=== PATIENT | female | born 1945 | race Caucasian/White ===

== ENCOUNTER 2017-01-02 19:34 | Emergency (ER) | payer OTHER ==
[~2017-01-02] VITALS: Ht 165.1 cm; Wt 50.3 kg
[~2017-01-02 19:34] MED LIST: ACET-1256 PO; ALPR-411 PO; CHOL100010 PO; CLR10 PO; LEVO25TA PO; MONT1TAB3 PO; OXYC1TAB3 PO
[2017-01-02 20:01] VITALS: TEMP 36.6; Ht 165.1 cm; Wt 50.3 kg
--- NOTE | 2017-01-02 22:00 | EMERGENCY ROOM VISIT NOTE ---
History Report prepared by Roel: Prashant Malone Under the Supervision of: Dr. Markel Purdy M.D. First contact with patient: 21:31 Chief Complaint: BACK PAIN Stated Complaint: BACK,SIDE,ABD PAIN History of Present Illness The patient is a 71 year old female who presents to the Emergency Room with complaints of constant left sided back pain for the past week. She currently rates her discomfort as a 6/10 in severity.The patient states that the pain radiates into her stomach. She additionally states that she has been having some nausea. The patient states that the pain goes down into her buttocks and her leg. The patient denies any chest pain, shortness of breath, numbness, weakness, or incontinence. She states that she has an increase in urine frequency, and it danielle when she urinates, however she states that there is no hematuria. She states that she does lift things while she is at home. The patient state that she has a history of kidney issues, and she states that the right one was enlarged. She states that she has a history of diverticulitis as well. Source of History: patient Onset: week ago Position: back (left ) Symptom Intensity: 6/10 Timing: constant Associated Symptoms: + nausea, + urinary symptoms, No SOB, No chest pain, No numbness, No weakness Review of Systems See HPI for pertinent positives & negatives. A total of 10 systems reviewed and were otherwise negative. Past Medical & Surgical Medical Problems: (1) Anxiety State Nos (2) Back pain (3) Back strain (4) Chest wall pain (5) Constipation (6) Hypothyroidism Nos (7) Kidney stone (8) Left flank pain (9) Low back pain (10) Muscular pain (11) Near syncope (12) Seasonal allergies (13) URI (upper respiratory infection) Surgical Problems: (1) Status post wrist surgery Old medical records were reviewed. Nurse's notes were reviewed and I agree with. Family History Diabetes mellitus FH: COPD (chronic obstructive pulmonary disease) FATHER FH: [place] (myocardial infarction) MOTHER FH: heart disease Seizures Social History Smoking Status: Current Every Day Smoker Alcohol Use: none Drug Use: none Marital Status: Housing Status: lives with family Occupation Status: unemployed Current/Historical Medications Scheduled Alprazolam (Xanax), 0.5 MG PO QAM Cholecalciferol (Vitamin D), 1,000 UNITS PO DAILY Levothyroxine Sodium (Synthroid), 25 MCG PO QAM Loratadine (Claritin), 10 MG PO DAILY Montelukast Sodium (Singulair), 10 MG PO DAILY Scheduled PRN Acetaminophen (Tylenol), 500 MG PO DIRECTED PRN for Pain Oxycodone Immediate Rel Tab (Roxicodone Ir), 1-2 TAB PO Q4H PRN for Severe Pain Allergies Coded Allergies: Aspirin (Verified Allergy, Intermediate, chest pain, 01/02/17) Cephalexin (Verified Allergy, Intermediate, Chest pain, 01/02/17) Latex (Verified Allergy, Intermediate, red skin, 01/02/17) Naproxen (Verified Allergy, Intermediate, chest pain, 01/02/17) Physical Exam Vital Signs Date Time Temp Pulse Resp B/P Pulse Ox O2 Delivery O2 Flow Rate FiO2 01/03/17 00:02 57 16 142/57 98 Room Air 01/02/17 21:59 35 16 146/86 97 Room Air 01/02/17 20:01 36.6 74 19 168/74 96 Room Air Physical Exam General: Non-ill appearing older female in no acute distress. HEENT: Normal cephalic atraumatic. Pupils are equal round and reactive to light. Sclera anicteric. Extraocular movements are intact. Oropharynx is pink with moist mucous membranes. No swelling of the mouth lips or tongue. Neck: Supple with a midline trachea. No meningeal signs or stiffness, no JVD or bruits. No Stridor. Chest: Clear to auscultation bilaterally. No wheezes or rhonchi. No increased work of breathing. Heart: regular rate and rhythm. Abdomen: Soft nontender, nondistended without rebound guarding or rigidity. Extremities: No cyanosis clubbing or edema. No calf tenderness or assymetry Spine/Back. Mild tenderness to palpation along the left flank and into the abdomen. No rash. Skin: Good turgor without rashes. Neurologic exam: Cranial nerves two through 12 are intact. Motor and sensation are intact and symmetrical throughout. Medical Decision & Procedures ER Provider Diagnostic Interpretation: Radiology results as stated below per my review and radiologist interpretation: ABDOMEN AND PELVIS CT WITHOUT CONTRAST CT DOSE: 326.03 mGy.cm HISTORY: Pain left flank pain TECHNIQUE: Multiaxial CT images of the abdomen and pelvis were performed without the use of intravenous and oral contrast according to the standard department stone protocol. COMPARISON STUDY: 12/12/2013. FINDINGS: lung bases are clear. General configuration of liver spleen and pancreas are unremarkable. Kidneys negative for hydronephrosis. The upper bowel pattern is nonobstructive. There evaluation of the pelvis is problematic. This is secondary to the lack of oral and intravenous contrast enhancement. There is suggestion of either a matted mass of the left lateral soft tissue pelvis versus multiple matted unopacified loops of bowel. This is estimated to measure 13 x 6 cm. There is a small amount of free fluid within the pelvic cul-de-sac. Bladder is midline with no contained calcifications. The appendix is normal. The osseous structures show moderate degenerative change. IMPRESSION: 1. Compromised exam due to the absence of intravenous and more significantly oral contrast. 2. Large soft tissue mass occupying the left lateral pelvis measuring 13 x 6 cm, versus the possibility of unopacified matted loops of bowel,, sigmoid, and potentially a component of the uterus. 3. This study must be repeated with intravenous and oral contrast as follow-up . Electronically signed by: Gallo Cavanaugh M.D. 01/02/2017 10:20 PM Dictated Date/Time: 01/02/2017 10:12 PM Laboratory Results 01/02/17 21:55 Red Blood Count 4.24, Mean Corpuscular Volume 91.7, Mean Corpuscular Hemoglobin 31.8, Mean Corpuscular Hemoglobin Concent 34.7, Mean Platelet Volume 9.1, Neutrophils (%) (Auto) 58.4, Lymphocytes (%) (Auto) 32.5, Monocytes (%) (Auto) 5.7, Eosinophils (%) (Auto) 2.7, Basophils (%) (Auto) 0.5, Neutrophils # (Auto) 5.57, Lymphocytes # (Auto) 3.10, Monocytes # (Auto) 0.54, Eosinophils # (Auto) 0.26, Basophils # (Auto) 0.05 01/02/17 21:55 Test 01/02/17 21:55 01/02/17 21:58 White Blood Count 9.54 K/uL (4.8-10.8) Red Blood Count 4.24 M/uL (4.2-5.4) Hemoglobin 13.5 g/dL (12.0-16.0) Hematocrit 38.9 % (37-47) Mean Corpuscular Volume 91.7 fL (80-100) Mean Corpuscular Hemoglobin 31.8 pg (25-34) Mean Corpuscular Hemoglobin Concent 34.7 g/dl (32-36) Platelet Count 252 K/uL (130-400) Mean Platelet Volume 9.1 fL (7.4-10.4) Neutrophils (%) (Auto) 58.4 % Lymphocytes (%) (Auto) 32.5 % Monocytes (%) (Auto) 5.7 % Eosinophils (%) (Auto) 2.7 % Basophils (%) (Auto) 0.5 % Neutrophils # (Auto) 5.57 K/uL (1.4-6.5) Lymphocytes # (Auto) 3.10 K/uL (1.2-3.4) Monocytes # (Auto) 0.54 K/uL (0.11-0.59) Eosinophils # (Auto) 0.26 K/uL (0-0.5) Basophils # (Auto) 0.05 K/uL (0-0.2) RDW Standard Deviation 42.2 fL (36.4-46.3) RDW Coefficient of Variation 12.5 % (11.5-14.5) Immature Granulocyte % (Auto) 0.2 % Immature Granulocyte # (Auto) 0.02 K/uL (0.00-0.02) Anion Gap 9.0 mmol/L (3-11) Est Creatinine Clear Calc Drug Dose 57.7 ml/min Estimated GFR () 98.3 Estimated GFR (Non- 84.9 BUN/Creatinine Ratio 14.9 (10-20) Calcium Level 9.7 mg/dl (8.5-10.1) Total Bilirubin 0.3 mg/dl (0.2-1) Direct Bilirubin < 0.1 mg/dl (0-0.2) Aspartate Amino Transf (AST/SGOT) 16 U/L (15-37) Alanine Aminotransferase (ALT/SGPT) 14 U/L (12-78) Alkaline Phosphatase 59 U/L (45-117) Total Protein 7.3 gm/dl (6.4-8.2) Albumin 4.1 gm/dl (3.4-5.0) Lipase 194 U/L (73-393) Urine Color YELLOW Urine Appearance CLEAR (CLEAR) Urine pH 7.0 (4.5-7.5) Urine Specific [place] 1.010 (1.000-1.030) Urine Protein NEG (NEG) Urine Glucose (UA) NEG (NEG) Urine Ketones NEG (NEG) Urine Occult Blood TRACE (NEG) Urine Nitrite NEG (NEG) Urine Bilirubin NEG (NEG) Urine Urobilinogen NEG (NEG) Urine Leukocyte Esterase NEG (NEG) Urine RBC 0-4 /hpf (0-4) Urine WBC 0 /hpf (0-5) Urine Epithelial Cells 0-5 /lpf (0-5) Urine Bacteria NEG (NEG) Lab results as reviewed by me. ED Course 2130: Past medical records reviewed. The patient was evaluated in room C2, and a complete history and physical examination were performed. 0016: I reassessed the patient, and she was resting comfortably. The radiologist felt that the CT results were inconclusive without contrast. Can't rule out masses. They recommend CT scan with contrast, and the patient wants to proceed with the imaging. Medical Decision Differentials include, but are not limited to; musculoskeletal, compression fracture, infection, UTI, diverticulitis, aneurysm, kidney stone This patient comes in as described above. She was placed in room C2. She's been having back pain going down her leg and into her abdomen. She has no numbness or weakness. She's had no fever or chills and no trauma. Looking at her chart ,she's had back pain before it did radiate to the abdomen which is a little bit different. IV access established and she was offered pain medication but declined. Her urinalysis does not suggest UTI with a culture pending. She's had no fever or white count to suggest infection. She has no acute electrolyte or metabolic abnormalities. She has nothing to suggest liver , gallbladder, or pancreas disease. Her CAT scan does not show any definite abnormalities with exception of a possible mass versus matted bowel loops in the pelvis. The Radiologist recommended repeating the CAT scan with IV and by mouth contrast. I discussed this with the patient and she desires to do this tonight. I ordered the scan. The patient will be signed out to Dr. Beck, who will follow-up with results. If they are normal I suspect she will be able to go home. She should return if increasing pain, worsening of symptoms, fever or chills, any new problems or concerns. She was happy with plan. Impression Primary Impression: Left-sided back pain Additional Impression: Left sided abdominal pain Scribe Attestation The scribe's documentation has been prepared under my direction and personally reviewed by me in its entirety. I confirm that the note above accurately reflects all work, treatment, procedures, and medical decision making performed by me. Departure Information Referrals Troy Eagle III, CRNP (PCP) Patient Instructions [facility] Problem Qualifiers
[2017-01-02] MEDS ORDERED: CHOL100010 PO (22:05)
[2017-01-02] MEDS ORDERED: OXYC1TAB3 PO (22:05)
[2017-01-02 22:07] LABS: BASO % 0.5 %; BASO ABS # 0.05 K/uL (0-0.2); COMPLETE YES; EOS % 2.7 %; HEMATOCRIT 38.9 % (37-47); IG% 0.2 %; LYMPH % 32.5 %; MEAN CELL VOLUME 91.7 fL (80-100); MEAN CORPUSCULAR HEMOGLOBIN 31.8 pg (25-34); MEAN CORPUSCULAR HGB CONC 34.7 g/dl (32-36); MEAN PLATELET VOLUME 9.1 fL (7.4-10.4); MONO % 5.7 %; NEUT % 58.4 %; PLATELET COUNT 252 K/uL (130-400); RED BLOOD COUNT 4.24 M/uL (4.2-5.4); WHITE BLOOD COUNT 9.54 K/uL (4.8-10.8)
--- NOTE | 2017-01-02 22:21 | DIAGNOSTIC IMAGING REPORT ---
ABDOMEN AND PELVIS CT WITHOUT CONTRAST CT DOSE: 326.03 mGy.cm HISTORY: Pain left flank pain TECHNIQUE: Multiaxial CT images of the abdomen and pelvis were performed without the use of intravenous and oral contrast according to the standard department stone protocol. COMPARISON STUDY: 12/12/2013. FINDINGS: lung bases are clear. General configuration of liver spleen and pancreas are unremarkable. Kidneys negative for hydronephrosis. The upper bowel pattern is nonobstructive. There evaluation of the pelvis is problematic. This is secondary to the lack of oral and intravenous contrast enhancement. There is suggestion of either a matted mass of the left lateral soft tissue pelvis versus multiple matted unopacified loops of bowel. This is estimated to measure 13 x 6 cm. There is a small amount of free fluid within the pelvic cul-de-sac. Bladder is midline with no contained calcifications. The appendix is normal. The osseous structures show moderate degenerative change. IMPRESSION: 1. Compromised exam due to the absence of intravenous and more significantly oral contrast. 2. Large soft tissue mass occupying the left lateral pelvis measuring 13 x 6 cm, versus the possibility of unopacified matted loops of bowel,, sigmoid, and potentially a component of the uterus. 3. This study must be repeated with intravenous and oral contrast as follow-up . Electronically signed by: Gallo Cavanaugh M.D. 01/02/2017 10:20 PM Dictated Date/Time: 01/02/2017 10:12 PM
[2017-01-02 22:25] LABS: ALT/SGPT 14 U/L (12-78); BLOOD UREA NITROGEN 11 mg/dl (7-18); BUN/CREATININE RATIO 14.9 (10-20); CALCIUM 9.7 mg/dl (8.5-10.1); CARBON DIOXIDE 27 mmol/L (21-32); CHLORIDE 106 mmol/L (98-107); CREATININE 0.72 mg/dl (0.60-1.20); GLUCOSE 103 mg/dl (70-99); POTASSIUM 3.5 mmol/L (3.5-5.1); SODIUM 142 mmol/L (136-145)
[2017-01-02 22:28] LABS: ALKALINE PHOSPHATASE 59 U/L (45-117); AST/SGOT 16 U/L (15-37)
[2017-01-02 22:55] LABS: MANUAL MICROSCOPIC REQUIRED? YES; URINE APPEARANCE CLEAR (CLEAR); URINE BILIRUBIN NEG (NEG); URINE COLOR YELLOW; URINE NITRITE NEG (NEG); UROBILINOGEN NEG (NEG)
[2017-01-02 23:13] LABS: REVIEW REQ? NO
[2017-01-02 23:23] LABS: URINE BACTERIA NEG (NEG); URINE RBC 0-4 /hpf (0-4); URINE WBC 0 /hpf (0-5)
[2017-01-03] MEDS ORDERED: OPTIRAY 320 IV PRN (00:30)
[2017-01-03 03:45] VITALS: BP 161/71; PULSE 62; O2SAT 97
--- NOTE | 2017-01-03 06:29 | EMERGENCY ROOM VISIT NOTE ---
ED Visit Note First contact with patient: 02:11 This case was signed out to me at change of shift awaiting results of CT scan of the abdomen/pelvis. The CT was interpreted by stat rad: Previously questioned pelvic mass corresponds to bowel loops and uterus on this oral and IV contrast examination. Appendix mostly feels with contrast its tip is mildly dilated but air-filled and there are no adjacent inflammatory changes to suggest appendicitis. No bowel obstruction no free air or free fluid subcentimeter likely renal cyst left kidney. 5 mm liver hypodensity, too small to act really characterize Right kidney demonstrates a compressed parents, which may be related to its more superior than typical location and results and compression by the liver, but there is no evidence of adjacent mass and liver is not enlarged. No hydronephrosis. Atherosclerotic calcifications of the aorta and its branches. Degenerative changes of the spine worst at L2 and L3. I reviewed these results with the patient and her family. She will discharged to home. I have encouraged her to follow-up with her PCP.
--- NOTE | 2017-01-03 07:50 | DIAGNOSTIC IMAGING REPORT ---
CT SCAN OF THE ABDOMEN AND PELVIS WITH IV CONTRAST CLINICAL HISTORY: Follow-up abnormal CT scan. Pelvic mass questioned on the unenhanced CT. COMPARISON STUDY: Abdominal CT dated 01/02/2017 and 12/12/2013. TECHNIQUE: Following the IV administration of 91 cc of Optiray 320, CT scan of the abdomen and pelvis is performed from the lung bases to the proximal femora. Images are reviewed in the axial, sagittal, and coronal planes. IV contrast was administered without complication. Automated dose control exposure was utilized. CT DOSE: 262.40 mGy.cm FINDINGS: Lung bases: There is mild right-sided cardiac enlargement. No pericardial effusion is seen. The lung bases are clear. Liver: The contrast-enhanced liver is normal in size, contour, and attenuation. Scattered subcentimeter hepatic hypodensities likely represent cysts but are too small for definitive characterization. There is no intrahepatic biliary ductal dilatation. The hepatic veins and portal veins are patent. Gallbladder: Unremarkable. Spleen: Normal in size and attenuation. Pancreas: Unremarkable. Adrenal glands: Unremarkable. Kidneys: The contrast enhanced kidneys demonstrate mild cortical atrophy and are without hydronephrosis. The kidneys enhance symmetrically. A subcentimeter cortical hypodensity in the left kidney likely absence a cyst but is too small for definitive characterization. Abdominal vasculature: The abdominal aorta is normal in course and caliber noting advanced atherosclerotic calcification. Bowel: The small bowel and colon are normal in course and caliber. The appendix is well-visualized and normal. Peritoneum: There is no intraperitoneal free air or abdominal ascites. Lymphadenopathy: None. Pelvic viscera: The bladder, uterus, and adnexa are normal as visualized. No pelvic mass is identified. Skeletal structures: The skeletal structures are osteopenic. There is moderate lumbosacral spondylosis and scoliosis. No lytic or blastic lesions are seen. IMPRESSION: 1. There are no acute infectious or inflammatory findings in the abdomen or pelvis. 2. There is no pelvic mass identified. The abnormality questioned on the unenhanced examination likely corresponds to decompressed small bowel loops and the uterus. 3. Additional findings as above. Electronically signed by: Robert Christiansen M.D. 01/03/2017 7:49 AM Dictated Date/Time: 01/03/2017 7:43 AM
== END 2017-01-03 04:12 | disposition home or self-care (01) ==
LOC: C.EDB 19:36 → C.EDC 01-03 04:12
DX: M54.9 Dorsalgia, unspecified (principal); R10.30 Lower abdominal pain, unspecified; E03.9 Hypothyroidism, unspecified; F41.9 Anxiety disorder, unspecified; F17.200 Nicotine dependence, unspecified, uncomplicated; Z87.442 Personal history of urinary calculi; Z86.19 Personal history of other infectious and parasitic diseases; Z79.899 Other long term (current) drug therapy; Z88.6 Allergy status to analgesic agent; Z88.8 Allergy status to other drugs, medicaments and biological substances; Z83.3 Family history of diabetes mellitus; Z82.49 Family history of ischemic heart disease and other diseases of the circulatory system; Z82.0 Family history of epilepsy and other diseases of the nervous system

== ENCOUNTER 2017-07-21 03:45 | Emergency (ER) | payer OTHER ==
[~2017-07-21] VITALS: Ht 165.1 cm; Wt 49.1 kg
[2017-07-21 03:58] VITALS: TEMP 36.6; Ht 165.1 cm; Wt 49.1 kg
[2017-07-21] MEDS ORDERED: OPTIRAY 320 IV PRN (04:45)
[2017-07-21 04:50] LABS: BASO % 0.5 %; BASO ABS # 0.05 K/uL (0-0.2); COMPLETE YES; HEMATOCRIT 39.2 % (37-47); IG% 0.3 %; LYMPH % 18.4 %; MEAN CELL VOLUME 92.2 fL (80-100); MEAN CORPUSCULAR HGB CONC 34.7 g/dl (32-36); MEAN PLATELET VOLUME 9.3 fL (7.4-10.4); MONO % 5.8 %; PLATELET COUNT 226 K/uL (130-400); RED BLOOD COUNT 4.25 M/uL (4.2-5.4); WHITE BLOOD COUNT 10.35 K/uL (4.8-10.8)
[2017-07-21 04:52] LABS: URINE APPEARANCE CLEAR (CLEAR); URINE BILIRUBIN NEG (NEG); URINE COLOR YELLOW; URINE NITRITE NEG (NEG); URINE PH 5.5 (4.5-7.5); URINE SPECIFIC GRAVITY 1.013 (1.000-1.030); UROBILINOGEN NEG (NEG); ZZUR CULT IF INDIC CLEAN CATCH NO
--- NOTE | 2017-07-21 04:52 | EMERGENCY ROOM VISIT NOTE ---
History First contact with patient: 04:20 Chief Complaint: ABDOMINAL PAIN Stated Complaint: STOMACH PAIN,NAUSEA Nursing Triage Summary: Pt reports abdominal pain on and off for about a couple of weeks. Pt reports this morning she woke up with lower abdominal pain that felt like gas pain but was unable to pass gas. History of Present Illness The patient is a 72 year old female who presents to the Emergency Room with complaints of lower abdominal pain which started approximately 3 hours ago. The patient states that she has had a crampy pain across her lower abdomen. She reports that she felt like she needed to have a bowel movement, but was not able to. She states that she had some mild intermittent pain throughout the day , but it worsened prior to arrival. She rates her overall discomfort a 6.5/10. She denies any associated urinary symptoms. She does report that she feels nauseous, but she feels this is due to postnasal drip. She reports a previous kidney surgery but denies any other abdominal surgeries. She denies any previous colonoscopy. Review of Systems A complete 10 point review of systems was reviewed with the patient with pertinent positives and negatives as per history of present illness. All else were negative. Past Medical/Surgical History Medical Problems: (1) Anxiety State Nos (2) Back pain (3) Back strain (4) Chest wall pain (5) Constipation (6) Hypothyroidism Nos (7) Kidney stone (8) Left flank pain (9) Low back pain (10) Muscular pain (11) Near syncope (12) Seasonal allergies (13) URI (upper respiratory infection) Surgical Problems: (1) Status post wrist surgery Family History Diabetes mellitus FH: COPD (chronic obstructive pulmonary disease) FATHER FH: [place] (myocardial infarction) MOTHER FH: heart disease Seizures Social History Smoking Status: Current Every Day Smoker Alcohol Use: none Drug Use: none Marital Status: Housing Status: lives with family Occupation Status: unemployed Current/Historical Medications Scheduled Alprazolam (Xanax), 0.5 MG PO QAM Cholecalciferol (Vitamin D), 1,000 UNITS PO DAILY Levothyroxine Sodium (Synthroid), 25 MCG PO QAM Loratadine (Claritin), 10 MG PO DAILY Montelukast Sodium (Singulair), 10 MG PO DAILY Scheduled PRN Acetaminophen (Tylenol), 500 MG PO DIRECTED PRN for Pain Allergies Coded Allergies: Aspirin (Verified Allergy, Intermediate, chest pain, 10/5/17) Cephalexin (Verified Allergy, Intermediate, Chest pain, 07/21/17) Latex (Verified Allergy, Intermediate, red skin, 07/21/17) Naproxen (Verified Allergy, Intermediate, chest pain, 07/21/17) Physical Exam Vital Signs Date Time Temp Pulse Resp B/P (MAP) Pulse Ox O2 Delivery O2 Flow Rate FiO2 07/21/17 08:20 65 18 138/55 98 07/21/17 07:23 63 18 132/49 96 Room Air 07/21/17 06:15 65 18 120/53 94 Room Air 07/21/17 03:58 36.6 82 20 144/76 96 Room Air Physical Exam VITALS: Vitals are noted on the nurse's note and reviewed by myself. Vital signs stable. GENERAL: This is a 72-year-old female, in no acute distress, nondiaphoretic, well-developed well-nourished. HEART: Regular rate and rhythm without murmurs gallops or rubs. LUNGS: Clear to auscultation bilaterally without wheezes, rales or rhonchi. ABDOMEN: Positive bowel sounds x 4. Soft, mild tenderness to palpation across the lower abdomen. No focal tenderness. No guarding or rebound tenderness. NEURO: Patient was alert and oriented to person place and time. 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 Lung bases: Minimal dependent changes likely atelectasis. Normal heart size. No pericardial or pleural effusion. Liver: Few small well-defined hypodensities indeterminate but likely hepatic cysts or hamartomas. Normal liver morphology. Patent vasculature. Biliary: Mild diffuse intrahepatic biliary ductal dilatation, which is probably central. The common duct is not significantly dilated. Normal gallbladder. Pancreas: Normal. Spleen: Normal. Adrenal glands: Normal. 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 The right ureter is also mildly dilated in the proximal segment, which takes an abnormally posterior medial course. The mid to distal right ureter is poorly visualized. No renal calculus is seen on the current or prior examination. Few small hypodensities in the right kidney, likely simple cysts. There is also new mild left pelvocaliectasis and dilatation of the proximal left ureter. The mid to distal left ureter is also poorly visualized. No current or prior left renal calculi. Bladder: Mildly distended. No bladder calculi. Pelvic organs: Normal. Bowel: Evaluation of the bowel is limited by lack of oral contrast. Allowing for this, mild stool burden throughout normal caliber colon. No bowel obstruction. Apparent gastric wall thickening at the fundus and at the antrum. No surrounding inflammatory change. Peritoneal cavity: Trace free fluid in the pelvis. Lymph nodes: No enlarged lymph nodes in the abdomen or pelvis. Vasculature: Prominent pelvic varices with dilation of the bilateral gonadal veins. Atherosclerosis. Dilated IVC and hepatic veins suggests a hypervolemic state. Abdominal wall: Normal. Musculoskeletal: Focal degenerative change at L2-3.. IMPRESSION: 1. Apparent gastric wall thickening at the fundus and antrum. This may be due to underdistention, although gastritis cannot be excluded. No perigastric inflammatory change. 2. Evaluation of the bowel is slightly degraded by the lack of oral contrast and a posterior intra-abdominal fat. 3. Mild central intrahepatic biliary ductal dilatation. No common duct dilatation. Correlate with LFTs. Ultrasound of the gallbladder to assess for gallstones could be obtained if clinically indicated. 4. 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 Laboratory Results 07/21/17 04:25 Red Blood Count 4.25, Mean Corpuscular Volume 92.2, Mean Corpuscular Hemoglobin 32.0, Mean Corpuscular Hemoglobin Concent 34.7, Mean Platelet Volume 9.3, Neutrophils (%) (Auto) 74.0, Lymphocytes (%) (Auto) 18.4, Monocytes (%) (Auto) 5.8, Eosinophils (%) (Auto) 1.0, Basophils (%) (Auto) 0.5, Neutrophils # (Auto) 7.67, Lymphocytes # (Auto) 1.90, Monocytes # (Auto) 0.60, Eosinophils # (Auto) 0.10, Basophils # (Auto) 0.05 07/21/17 04:25 Test 07/21/17 04:15 07/21/17 04:25 Urine Color YELLOW Urine Appearance CLEAR (CLEAR) Urine pH 5.5 (4.5-7.5) Urine Specific [place] 1.013 (1.000-1.030) Urine Protein NEG (NEG) Urine Glucose (UA) NEG (NEG) Urine Ketones NEG (NEG) Urine Occult Blood NEG (NEG) Urine Nitrite NEG (NEG) Urine Bilirubin NEG (NEG) Urine Urobilinogen NEG (NEG) Urine Leukocyte Esterase TRACE (NEG) Urine WBC (Auto) 5-10 /hpf (0-5) Urine RBC (Auto) 0-4 /hpf (0-4) Urine Hyaline Casts (Auto) 0 /lpf (0-5) Urine Epithelial Cells (Auto) 20-30 /lpf (0-5) Urine Bacteria (Auto) NEG (NEG) White Blood Count 10.35 K/uL (4.8-10.8) Red Blood Count 4.25 M/uL (4.2-5.4) Hemoglobin 13.6 g/dL (12.0-16.0) Hematocrit 39.2 % (37-47) Mean Corpuscular Volume 92.2 fL (80-100) Mean Corpuscular Hemoglobin 32.0 pg (25-34) Mean Corpuscular Hemoglobin Concent 34.7 g/dl (32-36) Platelet Count 226 K/uL (130-400) Mean Platelet Volume 9.3 fL (7.4-10.4) Neutrophils (%) (Auto) 74.0 % Lymphocytes (%) (Auto) 18.4 % Monocytes (%) (Auto) 5.8 % Eosinophils (%) (Auto) 1.0 % Basophils (%) (Auto) 0.5 % Neutrophils # (Auto) 7.67 K/uL (1.4-6.5) Lymphocytes # (Auto) 1.90 K/uL (1.2-3.4) Monocytes # (Auto) 0.60 K/uL (0.11-0.59) Eosinophils # (Auto) 0.10 K/uL (0-0.5) Basophils # (Auto) 0.05 K/uL (0-0.2) RDW Standard Deviation 42.3 fL (36.4-46.3) RDW Coefficient of Variation 12.5 % (11.5-14.5) Immature Granulocyte % (Auto) 0.3 % Immature Granulocyte # (Auto) 0.03 K/uL (0.00-0.02) Anion Gap 9.0 mmol/L (3-11) Est Creatinine Clear Calc Drug Dose 54.0 ml/min Estimated GFR () 94.5 Estimated GFR (Non- 81.5 BUN/Creatinine Ratio 15.9 (10-20) Calcium Level 9.7 mg/dl (8.5-10.1) Total Bilirubin 0.3 mg/dl (0.2-1) Aspartate Amino Transf (AST/SGOT) 15 U/L (15-37) Alanine Aminotransferase (ALT/SGPT) 15 U/L (12-78) Alkaline Phosphatase 60 U/L (45-117) Total Protein 6.9 gm/dl (6.4-8.2) Albumin 3.8 gm/dl (3.4-5.0) Globulin 3.1 gm/dl (2.5-4.0) Albumin/Globulin Ratio 1.2 (0.9-2) Lipase 240 U/L (73-393) ED Course The patient was evaluated as above. Labs were drawn and IV access was obtained. CT of the abdomen/pelvis was performed and read by radiology as above. Patient was reevaluated and stated that she was having no pain at this time. Discharge instructions were reviewed with the patient. The patient verbalized understanding of my assessment and treatment plan and was discharged home in good condition. Medical Decision Differential diagnosis includes gastroenteritis, colitis, diverticulitis, appendicitis, bowel obstruction, ileus, urinary tract infection, among others. The patient is a 72-year-old female who presents today complaining of lower abdominal pain. Labs revealed no leukocytosis, anemia or concerning electrolyte abnormalities. LFTs are not elevated. Urinalysis is not suggestive of infection. CT was performed and did not show any acute infectious or inflammatory findings. 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 There was evidence of gastritis, and the patient does admit to GERD and is treated for this. There was questionable intrahepatic biliary duct dilatation, however without elevation of LFTs or right upper quadrant pain I do not feel this is likely contributory to the patient's discomfort. Patient's symptoms are likely secondary to gastritis. She was advised to keep a clear liquid diet for the next 24 hours then advance as tolerated. She will call her primary care provider to schedule follow-up. The patient was independently evaluated by Dr. Beck, ED attending physician, who agreed with my assessment and treatment plan. Based on the patient's presentation and work up, I feel the patient is stable for outpatient treatment. The patient was educated to return to the emergency department for any worsening of their current condition or new/concerning symptoms. She will follow up with her PCP. Blood pressure screening: Patient was found to have normal blood pressure on screening and does not require follow-up. Medication reconciliation: I attest that I have personally reviewed the patient 's current medication list. Impression Primary Impression: Lower abdominal pain Departure Information Dispostion Home / Self-Care Condition GOOD Referrals Fawad Betancourt PA-C (PCP) Patient Instructions My [facility] Additional Instructions You have been treated in the Emergency Department for your Abdominal Pain. Laboratory results and imaging studies have ruled out any emergent causes for your abdominal pain which would warrant admission or surgery. Clear liquid diet over the next 24 hours, then advance as tolerated. Drink plenty of water and stay well hydrated. As with any trip to the Emergency Department, you should follow-up with your Primary Care Provider from today's visit. Call them today to schedule a follow- up within 2 days. Return to the emergency department if your symptoms persist despite treatment plan outlined above or if the following symptoms occur: increased fevers, chills , worsening nausea/vomiting, blood in your stool or urine.
[2017-07-21 05:05] LABS: MANUAL MICROSCOPIC REQUIRED? NO; REVIEW REQ? YES
[2017-07-21 05:07] LABS: BUN/CREATININE RATIO 15.9 (10-20); CALCIUM 9.7 mg/dl (8.5-10.1); CREATININE 0.74 mg/dl (0.60-1.20); POTASSIUM 3.8 mmol/L (3.5-5.1)
[2017-07-21 05:10] LABS: ALB/GLOB RATIO 1.2 (0.9-2)
[2017-07-21 05:10] LABS: URINE EPITHELIAL CELL AUTO 20-30 /lpf (0-5)
--- NOTE | 2017-07-21 07:58 | DIAGNOSTIC IMAGING REPORT ---
ABD/PELVIS IV CONTRAST ONLY CLINICAL HISTORY: 72 years-old Female presenting with lower abd pain. TECHNIQUE: Multidetector CT of the abdomen and pelvis was performed after the administration of intravenous contrast. IV contrast: 92 mL of Optiray 320. A dose lowering technique was used consistent with the principles of ALARA (as low as reasonably achievable). COMPARISON: 01/03/2017. CT DOSE (mGy.cm): The estimated cumulative dose is 251.96 mGy.cm. 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 Lung bases: Minimal dependent changes likely atelectasis. Normal heart size. No pericardial or pleural effusion. Liver: Few small well-defined hypodensities indeterminate but likely hepatic cysts or hamartomas. Normal liver morphology. Patent vasculature. Biliary: Mild diffuse intrahepatic biliary ductal dilatation, which is probably central. The common duct is not significantly dilated. Normal gallbladder. Pancreas: Normal. Spleen: Normal. Adrenal glands: Normal. 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 The right ureter is also mildly dilated in the proximal segment, which takes an abnormally posterior medial course. The mid to distal right ureter is poorly visualized. No renal calculus is seen on the current or prior examination. Few small hypodensities in the right kidney, likely simple cysts. There is also new mild left pelvocaliectasis and dilatation of the proximal left ureter. The mid to distal left ureter is also poorly visualized. No current or prior left renal calculi. Bladder: Mildly distended. No bladder calculi. Pelvic organs: Normal. Bowel: Evaluation of the bowel is limited by lack of oral contrast. Allowing for this, mild stool burden throughout normal caliber colon. No bowel obstruction. Apparent gastric wall thickening at the fundus and at the antrum. No surrounding inflammatory change. Peritoneal cavity: Trace free fluid in the pelvis. Lymph nodes: No enlarged lymph nodes in the abdomen or pelvis. Vasculature: Prominent pelvic varices with dilation of the bilateral gonadal veins. Atherosclerosis. Dilated IVC and hepatic veins suggests a hypervolemic state. Abdominal wall: Normal. Musculoskeletal: Focal degenerative change at L2-3.. IMPRESSION: 1. Apparent gastric wall thickening at the fundus and antrum. This may be due to underdistention, although gastritis cannot be excluded. No perigastric inflammatory change. 2. Evaluation of the bowel is slightly degraded by the lack of oral contrast and a posterior intra-abdominal fat. 3. Mild central intrahepatic biliary ductal dilatation. No common duct dilatation. Correlate with LFTs. Ultrasound of the gallbladder to assess for gallstones could be obtained if clinically indicated. 4. 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 Electronically signed by: Robb Rahman M.D. 07/21/2017 7:56 AM Dictated Date/Time: 07/21/2017 7:27 AM
--- NOTE | 2017-07-21 08:02 | EMERGENCY ROOM VISIT NOTE ---
ED Visit Note First contact with patient: 04:20 I saw this patient in conjunction with Mi Kraft PA-C. I agree with her decision making and treatment plan.
[2017-07-21 08:20] VITALS: BP 138/55; PULSE 65; O2SAT 98
== END 2017-07-21 08:21 | disposition home or self-care (01) ==
LOC: C.EDB 03:46 → C.EDA 08:21
DX: R10.30 Lower abdominal pain, unspecified (principal); F41.9 Anxiety disorder, unspecified; E03.9 Hypothyroidism, unspecified; Z87.442 Personal history of urinary calculi; Z83.3 Family history of diabetes mellitus; Z82.49 Family history of ischemic heart disease and other diseases of the circulatory system; F17.210 Nicotine dependence, cigarettes, uncomplicated; Z79.899 Other long term (current) drug therapy

== ENCOUNTER 2024-11-29 10:33 | Inpatient (IN) ==
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
--- NOTE | 2024-11-29 11:46 | CT Scan Report ---
CT head/brain wo con CLINICAL HISTORY: 79 years-old Female with confusion. Acutely altered mental status TECHNIQUE: Multiple axial CT images of the head were obtained without contrast. A dose lowering tech nique was utilized adhering to the principles of ALARA. CT DOSE: 625.8 mGy.cm COMPARISON: 09/19/2016 FINDINGS: No acute intracranial hemorrhage, midline shift, intracranial mass, hydrocephalus, territorial ischem ia or abnormal extra-axial collection. Progressively worse and involutional changes with chronic micr ovascular ischemic disease and mild ex vacuo ventriculomegaly. Encephalomalacia within the left tempo roparietal lobe suggestive of a chronic infarct. Calcification of the pontine brainstem again noted. The calvarium is intact. The paranasal sinuses, mastoid air cells, and middle ear cavities are clear . IMPRESSION: No acute intracranial abnormality. ACT 112: Negative or not required by law. The above report was generated using voice recognition software. It may contain grammatical, syntax o r spelling errors. Electronically signed by: Jeremy Garay M.D. 11/29/2024 11:45 AM
[2024-11-29 12:01] LABS: Basophils # (auto) 0.06 K/uL (0.00-0.20); Basophils % (auto) 0.8 %; Eosinophils # (auto) 0.09 K/uL (0.00-0.50); Eosinophils % (auto) 1.1 %; Hematocrit (blood only) 38.1 % (37.0-47.0); Hemoglobin 13.1 g/dl (12.0-16.0); Immature Granulocytes # (auto) 0.01 K/uL (0.01-0.20); Immature Granulocytes % (auto) 0.1 %; Lymphocytes % (auto) 17.6 %; Mean Corpuscular Hemoglobin 31.4 pg (25.0-34.0); Mean Corpuscular Hgb Conc 34.4 g/dL (32.0-36.0); Mean Corpuscular Volume 91.4 fL (80.0-100.0); Mean Platelet Volume 9.3 fL (9.4-12.4); Monocytes # (auto) 0.78 K/uL (0.11-0.59); Monocytes % (auto) 9.8 %; Neutrophils # (auto) 5.63 K/uL (1.40-6.50); Neutrophils % (auto) 70.6 %; Platelet Count 264 K/uL (130-400); RDW Coefficient of Variation 12.6 % (11.5-14.5); Red Blood Count 4.17 M/uL (4.20-5.40); White Blood Count 7.97 K/ul (4.8-10.8)
[2024-11-29 12:17] LABS: Acetaminophen < 3 ug/ml (10-30); Salicylate < 3.0 mg/dl (3.0-30)
[2024-11-29 12:20] LABS: Alanine Aminotransferase 16 U/L (7-52); Albumin Globulin Ratio 1.7 (0.9-2); Albumin Level 4.5 gm/dl (3.4-5.0); Alkaline Phosphatase 48 U/L (34-104); Anion Gap 5 (3-11); Aspartate Aminotransferase 25 U/L (13-39); BUN Creatinine Ratio 19.8 (10-20); Bilirubin,Total 0.5 mg/dl (0.2-1.0); Blood Urea Nitrogen 17 mg/dl (6-23); Carbon Dioxide 29 mmol/L (21-32); Chloride 104 mmol/L (98-107); Globulin 2.7 gm/dl (2.5-4.0); Glucose 101 mg/dl (70-99(Fasting)); Magnesium 2.1 mg/dl (1.7-2.4); Potassium 4.1 mmol/L (3.5-5.1); Sodium 138 mmol/L (136-145); Total Protein 7.2 gm/dl (6.0-8.3)
[2024-11-29 12:44] LABS: Appearance Urine Clear (Clear); Bilirubin Urine Negative (Negative); Blood Urine Negative (Negative); Color Urine Yellow; Glucose Urine UA Negative (Negative); Ketones Urine Negative (Negative); Leukocyte Esterase Urine Negative (Negative); Nitrite Urine Negative (Negative); Protein Urine Negative (Negative); Specific Gravity Urine 1.004 (1.000-1.030); Urobilinogen Urine Negative (Negative)
[2024-11-29 13:20] LABS: Amphetamines+Metham, Urine Neg (Neg); Barbiturates, Urine Neg (Neg); Benzodiazepine, Urine Pos (Neg); Cocaine, Urine Neg (Neg); Fentanyl, Urine Neg (Neg); MDMA (Ecstacy), Urine Neg (Neg); Marijuana, Urine Neg (Neg); Methadone, Urine Neg (Neg); Opiate, Urine Neg (Neg); Phencyclidine, Urine Neg (Neg)
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
[2024-11-29] MEDS ORDERED: ACETAMINOPHEN 325 MG TAB PO PRN (15:24)
[2024-11-29] MEDS ORDERED: OLANZapine 10 MG/2.1 ML SDV IM PRN (15:24)
[2024-11-29] MEDS: Patient's HEIGHT &/or WEIGHT Needed STA (15:42)
[2024-11-29] MEDS ORDERED: PNEUMOCOCCAL VACCINE (PCV20) 20-VAL CONJ-DIP CRM/PF 0.5 ML SYR IM ONE (15:42)
[2024-11-29] MEDS: ENOXAPARIN INJ 30 MG/0.3 ML SYR SQ SCH (17:20)
[2024-11-29] MEDS: DONEPEZIL HCL 5 MG TAB PO SCH (19:59)
[2024-11-29] MEDS: ALPRAZolam 0.5 MG TABLET PO PRN (19:59)
[2024-11-30] MEDS: LEVOTHYROXINE SODIUM 25 MCG TABLET PO SCH (05:46)
[2024-11-30] MEDS: ATORVASTATIN 10 MG TAB PO SCH (09:03)
[2024-11-30] MEDS: SERTRALINE HCL 50 MG TABLET PO SCH (09:03)
--- NOTE | 2024-11-30 17:18 | Hospitalist Progress Note ---
Date of Service November 30, 2024 Assessment & Plan (1) Memory impairment: (2) Advanced dementia: Plan Alyssia is a 79-year-old female with PMH of dementia, recurrent UTIs, and memory impairment. She presented on 11/29 for an acute worsening of her known dementia. Patient lives with her daughter (Liam). Both children report that she has had significant decline in her cognition since around [place] time 2023. 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 #Advanced dementia One-to-one precautions for now No infectious symptoms appreciated on exam or lab findings Continue sertraline 25 mg daily, donepezil 5 mg daily, Xanax 0.5 mg BID PRN anxiety Zyprexa 5mg IM chain sales consultant as needed for acute agitation Consider low dose Seroquel at night -- will monitor behaviors overnight Chronic stable issues: #Hypothyroidism-levothyroxine #HLD-atorvastatin DVT PPx: Lovenox 40 mg SQ q24h Dispo: Continue inpatient stay while awaiting long-term placement. Case management following; referrals pending. Updated daughter Kristine via phone call Admission and Anticipated Discharge Date Admission Date: November 29, 2024 Supervising Physician Co-Signing Physician Notes Attending Attestation - Chart reviewed, care plan d/w PA Shiela Gama. I agree w/ the herbert components of her documentation. Pt with advanced dementia with behavioral disturbance. Dementia has progressed considerably last few months. 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 Should be on low-dose asa for secondary stroke prevention. Consider B12 and B1 levels. Eric Guajardo MD Subjective Patient seen and evaluated in bedside chair. She was sitting calmly, just finished lunch. She denies any acute complaints or concerns at this time. We discussed her stuffed animal dogs throughout the room. RN reported she was more agitated this morning when family was present, but has remained pretty calm with the one-to-one aide in the room. RN also reports she is independent in the room. Physical Exam Physical Exam: General: No acute distress, nondiaphoretic, frail elderly female. Cardiac: Regular rate in 60s. Well perfused. Pulm: Normal respiratory effort. 98% on room air. Neuro: A&O x2 (person, place) - baseline secondary to dementia. No focal neurological deficits. Results & Data Results & Data Vital Signs (Past 12 Hours) Vital Signs Temp Pulse Resp BP Pulse Ox O2 Del Method 11/30/24 15:20 98.1 F 62 17 169/69 H 98 Room Air PG Care Time/CCT Total # of Minutes Spent Total Time Spent with Patient: Total time spent is greater than 50% in coordination of care (as documented) at patient's floor/unit and/or counseling patient: Coding Level of Care Code 77644 SUB INP/OBS CARE 2/35MIN Diagnoses Memory impairment R41.3 Advanced dementia F03.C0
[2024-11-30] MEDS: MELATONIN 3 MG TAB PO PRN (20:29)
--- NOTE | 2024-12-01 11:43 | Hospitalist Progress Note ---
Date of Service December 01, 2024 Assessment & Plan (1) Memory impairment: (2) Advanced dementia: Plan Alyssia is a 79-year-old female with PMH of dementia, recurrent UTIs, and memory impairment. She presented on 11/29 for an acute worsening of her known dementia. Patient lives with her daughter (Liam). Both children report that she has had significant decline in her cognition since around Ann time 2023. Family desires to have the patient admitted for manager long term care placement. #Advanced dementia No infectious symptoms appreciated on exam or lab findings Continue sertraline 25 mg daily, donepezil 5 mg daily, Xanax 0.5 mg increased to TID PRN anxiety Will try Seroquel 25 mg HS -- received 1 time dose in afternoon due to agitation Start aspirin 81 mg daily for primary prevention given encephalomalacia within the left temporoparietal lobe suggestive of chronic infarct noted on Head CT Zyprexa 5mg IM color control operator as needed for acute agitation Chronic stable issues: #Hypothyroidism-levothyroxine #HLD-atorvastatin DVT PPx: Lovenox 40 mg SQ q24h Dispo: Continue inpatient stay while awaiting long-term placement. Case management following; referrals pending. Updated daughter Kristine at bedside Started daily aspirin, Seroquel HS and ordered 1 time dose Seroquel for agitation Admission and Anticipated Discharge Date Admission Date: November 29, 2024 Supervising Physician Co-Signing Physician Notes Attending Attestation - Chart reviewed, care plan d/w KRISTI Gama. I agree w/ the herbert components of her documentation. Pt with advanced dementia with behavioral disturbance. Dementia has progressed considerably last few months. Agree with seroquel - patient with yelling and profanity along with agitation. 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 Should be on low-dose asa for secondary stroke prevention. Aspirin 81mg daily ordered. Check B12 and B1 levels to r/o reversible nutritional deficiencies that can cause memory disturbance. Eric Gaujardo MD Subjective Patient seen and evaluated at bedside with her daughter, Kristine, present. She was agitated and yelling this morning per RN and daughter. She has calmed down mostly since then, currently resting comfortably in bedside chair. RN reports patient took her morning medications without difficulty and ate all of her breakfast. She reports that she would like to go home. Denies any acute complaints, concerns, or needs. Discussed medications with daughter and agreeable to trying low dose Seroquel HS and baby aspirin daily. Daughter reports they are going to visit [facility] today for possible placement. Returned to bedside in afternoon after reports of patient becoming agitated. She was yelling profanities in her room. Upon entry, she calmed down and was redirectable. We walked a lap in the hallways and she remained calm and appropriate. She later became agitated again and started yelling profanities further; attempted to redirect patient with taking a walk, doing other activities, getting her a snack/drink but she refused. 1 time dose of Seroquel was ordered at that time. Physical Exam Physical Exam: General: No acute distress, nondiaphoretic, frail elderly female. Intermittently agitated. Cardiac: Regular rate in 80s. Well perfused. Pulm: Normal respiratory effort. 97% on room air. Neuro: A&O x2 (person, place) - baseline secondary to dementia. No focal neurological deficits. Results & Data Results & Data Vital Signs (Past 12 Hours) Vital Signs Temp Pulse Resp BP Pulse Ox O2 Del Method 12/01/24 07:13 98.1 F 82 18 155/72 H 97 Room Air PG Care Time/CCT Total # of Minutes Spent Total Time Spent with Patient: Total time spent is greater than 50% in coordination of care (as documented) at patient's floor/unit and/or counseling patient: Coding Level of Care Code 28821 SUB INP/OBS CARE 3/50MIN Diagnoses Memory impairment R41.3 Advanced dementia F03.C0
[2024-12-01] MEDS: ALPRAZolam 0.5 MG TABLET ONE (14:40)
[2024-12-01] MEDS: QUEtiapine FUMARATE 25 MG TABLET PO ONE (16:53)
[2024-12-01] MEDS: ALPRAZolam 0.5 MG TABLET PO PRN (20:12)
[2024-12-01] MEDS: QUEtiapine FUMARATE 25 MG TABLET PO SCH (20:13)
[2024-12-02] MEDS: ASPIRIN 81 MG ECTAB PO SCH (07:00)
--- NOTE | 2024-12-02 10:23 | Hospitalist Progress Note ---
Date of Service December 02, 2024 Assessment & Plan (1) Memory impairment: (2) Advanced dementia: Plan Alyssia is a 79-year-old female with PMH of dementia, recurrent UTIs, and memory impairment. She presented on 11/29 for an acute worsening of her known dementia. Patient lives with her daughter (Liam). Both children report that she has had significant decline in her cognition since around Ann time 2023. No infectious symptoms appreciated on exam or lab findings. Family desires to have the patient admitted for assisted placement. Started aspirin 81 mg daily for primary prevention given encephalomalacia within the left temporoparietal lobe suggestive of chronic infarct noted on Head CT. Started Seroquel HS to help with agitation overnight. #Advanced dementia Continue sertraline 25 mg daily, donepezil 5 mg daily, Xanax 0.5 mg TID PRN anxiety Seroquel increased to 50 mg HS Continue aspirin 81 mg daily Zyprexa 5mg IM alberene stone setter as needed for acute agitation Vit B12 WNL, Vit B1 level pending Chronic stable issues: #Hypothyroidism-levothyroxine #HLD-atorvastatin DVT PPx: Lovenox 40 mg SQ q24h Dispo: Continue inpatient stay while awaiting long-term placement. Case management following; referrals pending. Plan is for patient to temporarily go to locked dementia unit while family coordinates home care. Updated daughter Andres at bedside Discussed discharging planning with case management Admission and Anticipated Discharge Date Admission Date: November 29, 2024 Supervising Physician Co-Signing Physician Notes Attending Attestation - Chart reviewed, care plan d/w KRISTI Gama. I agree w/ the herbert components of her documentation. Pt with advanced dementia with behavioral disturbance. Dementia has progressed considerably last few months. Agree with dose titration of seroquel to 50mg HS as she sundowned all night last pm. 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 Added low-dose asa for secondary stroke prevention. B12 level "normal" per the lab range but given it is <300 would replace for 4-6 months. B1 level pending. Dispo planning. Eric Guajardo MD Subjective Patient seen and evaluated in bedside chair with her daughter Andres present. Patient was agitated and yelling profanities in her room/the hallway earlier this morning. She remains redirectable and does calm down with staff's encou ragement. RN reports she took her morning meds without difficulty. Patient states she did not sleep much last night. She denies any acute complaints or concerns at this time. Daughter Andres asked for resources from case management regarding possibly bringing the patient back home with more supportive care. Informed daughter I will ask case management to come speak with her, but I do have concern regarding patient's/family's safety at home without more support (09/05 supervision, locks on all outside doors, etc.). Physical Exam Physical Exam: General: No acute distress, nondiaphoretic, frail elderly female. Intermittently agitated but redirectable. Walks her room/halls without difficulty. Cardiac: Regular rate in 70s. Well perfused. Pulm: Normal respiratory effort. 96% on room air. Neuro: A&O x2 (person, place) - baseline secondary to dementia. No focal neurological deficits. Results & Data Results & Data Vital Signs (Past 12 Hours) Vital Signs Pulse Resp BP Pulse Ox O2 Del Method 12/02/24 07:40 73 18 169/73 H 96 Room Air Laboratory Results Reviewed Vit B12 PG Care Time/CCT Total # of Minutes Spent Total Time Spent with Patient: Total time spent is greater than 50% in coordination of care (as documented) at patient's floor/unit and/or counseling patient: Coding Level of Care Code 87697 SUB INP/OBS CARE 2/35MIN Diagnoses Memory impairment R41.3 Advanced dementia F03.C0
[2024-12-02] MEDS: QUEtiapine FUMARATE 25 MG TABLET PO SCH (20:24)
--- NOTE | 2024-12-03 14:19 | Hospitalist Progress Note ---
Date of Service December 03, 2024 Assessment & Plan (1) Memory impairment: (2) Advanced dementia: Plan Alyssia is a 79-year-old female with PMH of dementia, recurrent UTIs, and memory impairment. She presented on 11/29 for an acute worsening of her known dementia. Patient lives with her daughter (Liam). Both children report that she has had significant decline in her cognition since around Ann time 2023. No infectious symptoms appreciated on exam or lab findings. Family desires to have the patient admitted for [facility] placement. Started aspirin 81 mg daily for primary prevention given encephalomalacia within the left temporoparietal lobe suggestive of chronic infarct noted on Head CT. Started Seroquel HS to help with agitation overnight. #Advanced dementia Continue sertraline 25 mg daily, donepezil 5 mg daily, Xanax 0.5 mg TID PRN anxiety Continue Seroquel to 50 mg HS Continue aspirin 81 mg daily Zyprexa 5mg IM lamination spinner as needed for acute agitation Vit B12 WNL, Vit B1 level pending Chronic stable issues: #Hypothyroidism-levothyroxine #HLD-atorvastatin DVT PPx: Lovenox 40 mg SQ q24h Dispo: Continue inpatient stay while awaiting long-term placement. Case management following; referrals pending. Plan is for patient to temporarily go to locked dementia unit while family coordinates home care. Updated daughter Andres at bedside Admission and Anticipated Discharge Date Admission Date: November 29, 2024 Supervising Physician Co-Signing Physician Notes Attending Attestation - Chart reviewed, care plan d/w KRISTI Gama. I agree w/ the herbert components of her documentation. Pt with advanced dementia with behavioral disturbance. Dementia has progressed considerably last few months. Cont seroquel 50mg HS. 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 Added low-dose asa for secondary stroke prevention. B12 level "normal" per the lab range but given it is <300 -- consider replacement for 4-6 months. B1 level pending. Dispo planning. Eric Guajardo MD Subjective Patient seen and evaluated at bedside this morning. She was quite agitated at this time, yelling profanities in the room. She did calm down with redirection. She continued to repeat that she wants to go home. She denies any acute complaints or concerns at this time. Rerounded on patient in afternoon. She is calmly sitting in her room at this time with her daughter, Andres, present. No complaints or concerns. Andres confirms the plan is for discharge to locked dementia unit while family coordinates care for home. Physical Exam Physical Exam: General: No acute distress, nondiaphoretic, frail elderly female. Intermittently agitated but redirectable. Walks her room/halls without difficulty. Cardiac: Regular rate in 70s. Well perfused. Pulm: Normal respiratory effort. 96% on room air. Neuro: A&O x2 (person, place) - baseline secondary to dementia. No focal neurological deficits. Results & Data Results & Data Vital Signs (Past 12 Hours) Vital Signs Temp Pulse Resp BP Pulse Ox O2 Del Method 12/03/24 07:29 97.7 F 55 L 16 174/66 H 98 Room Air PG Care Time/CCT Total # of Minutes Spent Total Time Spent with Patient: Total time spent is greater than 50% in coordination of care (as documented) at patient's floor/unit and/or counseling patient: Coding Level of Care Code 30263 SUB INP/OBS CARE 2/35MIN Diagnoses Memory impairment R41.3 Advanced dementia F03.C0
[2024-12-04 11:37] LABS: 7-Aminoclonaz, Confirm NEGATIVE ng/mL (<25); Hydro-Alp Ur, GC/MS 61 ng/mL (<25); Hydroxyethylflurazepam, Conf NEGATIVE ng/mL (<50); Hydroxymidazolam Ur, GC/MS NEGATIVE ng/mL (<50); Hydroxytriazolam NEGATIVE ng/mL (<50); Lorazepam, Ur GC/MS NEGATIVE ng/mL (<50); Nordiazepam, Confirm NEGATIVE ng/mL (<50); Oxazepam Ur, GC/MS NEGATIVE ng/mL (<50); Temazepam, Confirm NEGATIVE ng/mL (<50)
--- NOTE | 2024-12-04 22:11 | Hospitalist Progress Note ---
Date of Service December 04, 2024 Assessment & Plan (1) Memory impairment: (2) Advanced dementia: Plan Alyssia is a 79-year-old female with PMH of dementia, recurrent UTIs, and memory impairment. She presented on 11/29 for an acute worsening of her known dementia. Patient lives with her daughter (Liam). Both children report that she has had significant decline in her cognition since around Ann time 2023. No infectious symptoms appreciated on exam or lab findings. Family desires to have the patient admitted for senior care placement. Started aspirin 81 mg daily for primary prevention given encephalomalacia within the left temporoparietal lobe suggestive of chronic infarct noted on Head CT. Started Seroquel HS to help with agitation overnight. #Advanced dementia Continue sertraline 25 mg daily, donepezil 5 mg daily, Xanax 0.5 mg TID PRN anxiety Continue Seroquel to 50 mg HS Continue aspirin 81 mg daily Zyprexa 5mg IM electronic warfare operator as needed for acute agitation Vit B12 WNL, Vit B1 level still pending Appears more controlled now with zyprexa. Chronic stable issues: #Hypothyroidism-levothyroxine #HLD-atorvastatin DVT PPx: Lovenox 40 mg SQ q24h Dispo: Continue inpatient stay while awaiting long-term placement. Case management following; referrals pending. Plan is for patient to temporarily go to locked dementia unit while family coordinates home care. Updated daughter Phyllis at bedside Chart review. Admission and Anticipated Discharge Date Admission Date: November 29, 2024 Subjective Patient is calm. Physical Exam Physical Exam: General: No acute distress, nondiaphoretic, frail elderly female. \ Walks her room/halls without difficulty. Cardiac: Regular rate in 70s. Well perfused. Pulm: Normal respiratory effort. 97% on room air. Neuro: A&O x2 (person, place) - baseline secondary to dementia. No focal neurological deficits. Results & Data Results & Data Vital Signs (Past 12 Hours) Vital Signs Temp Pulse Resp BP Pulse Ox O2 Del Method 12/04/24 15:22 36.6 C 71 16 172/63 H 98 Room Air PG Care Time/CCT Total # of Minutes Spent Total Time Spent with Patient: Total time spent is greater than 50% in coordination of care (as documented) at patient's floor/unit and/or counseling patient: Coding Level of Care Code 54635 SUB INP/OBS CARE MIN Diagnoses Memory impairment R41.3 Advanced dementia F03.C0
--- NOTE | 2024-12-05 22:37 | Hospitalist Progress Note ---
Date of Service December 05, 2024 Assessment & Plan (1) Memory impairment: (2) Advanced dementia: Plan Alyssia is a 79-year-old female with PMH of dementia, recurrent UTIs, and memory impairment. She presented on 11/29 for an acute worsening of her known dementia. Patient lives with her daughter (Liam). Both children report that she has had significant decline in her cognition since around Ann time 2023. No infectious symptoms appreciated on exam or lab findings. Family desires to have the patient admitted for longterm placement. Started aspirin 81 mg daily for primary prevention given encephalomalacia within the left temporoparietal lobe suggestive of chronic infarct noted on Head CT. Started Seroquel HS to help with agitation overnight. #Advanced dementia Continue sertraline 25 mg daily, donepezil 5 mg daily, Xanax 0.5 mg TID PRN anxiety Continue Seroquel to 50 mg HS Continue aspirin 81 mg daily Zyprexa 5mg IM chief contract officer as needed for acute agitation Vit B12 WNL, Vit B1 level still pending Appears more controlled now with zyprexa. No longer agititaed. Chronic stable issues: #Hypothyroidism-levothyroxine #HLD-atorvastatin DVT PPx: Lovenox 40 mg SQ q24h Dispo: Continue inpatient stay while awaiting long-term placement. Case management following; referrals pending. Plan is for patient to temporarily go to locked dementia unit while family coordinates home care. Updated daughter Chart review. Admission and Anticipated Discharge Date Admission Date: November 29, 2024 Subjective Patient reports no new symptoms. Physical Exam Physical Exam: General: No acute distress, nondiaphoretic, frail elderly female. \ Walks her room/halls without difficulty. Cardiac: Regular rate in 70s. Well perfused. Pulm: Normal respiratory effort. 97% on room air. Neuro: A&O x2 (person, place) - baseline secondary to dementia. No focal neurological deficits. Results & Data Results & Data Vital Signs (Past 12 Hours) Vital Signs Temp Pulse Resp BP Pulse Ox O2 Del Method 12/05/24 14:15 37.1 C 71 16 158/77 H 99 Room Air PG Care Time/CCT Total # of Minutes Spent Total Time Spent with Patient: Total time spent is greater than 50% in coordination of care (as documented) at patient's floor/unit and/or counseling patient: Coding Level of Care Code 44192 SUB INP/OBS CARE 235MIN Diagnoses Memory impairment R41.3 Advanced dementia F03.C0
--- NOTE | 2024-12-06 22:52 | Hospitalist Progress Note ---
Date of Service December 06, 2024 Assessment & Plan (1) Memory impairment: (2) Advanced dementia: Plan Alyssia is a 79-year-old female with PMH of dementia, recurrent UTIs, and memory impairment. She presented on 11/29 for an acute worsening of her known dementia. Patient lives with her daughter (Liam). Both children report that she has had significant decline in her cognition since around Ann time 2023. No infectious symptoms appreciated on exam or lab findings. Family desires to have the patient admitted for [facility]. Started aspirin 81 mg daily for primary prevention given encephalomalacia within the left temporoparietal lobe suggestive of chronic infarct noted on Head CT. Started Seroquel HS to help with agitation overnight. #Advanced dementia Continue sertraline 25 mg daily, donepezil 5 mg daily, Xanax 0.5 mg TID PRN anxiety Continue Seroquel to 50 mg HS Continue aspirin 81 mg daily Zyprexa 5mg IM supervisor mirror fabrication as needed for acute agitation Vit B12 WNL, Vit B1 level still pending Appears more controlled now with zyprexa. No longer agiitaed. vitals stable. Chronic stable issues: #Hypothyroidism-levothyroxine #HLD-atorvastatin DVT PPx: Lovenox 40 mg SQ q24h Dispo: Continue inpatient stay while awaiting long-term placement. Case management following; referrals pending. Plan is for patient to temporarily go to locked dementia unit while family coordinates home care. Updated daughter Chart review. Admission and Anticipated Discharge Date Admission Date: November 29, 2024 Subjective 79 yo female reports no new symptoms. Physical Exam Physical Exam: General: No acute distress, nondiaphoretic, frail elderly female. \ Walks her room/halls without difficulty. Cardiac: Regular rate in 70s. Well perfused. Pulm: Normal respiratory effort. 97% on room air. Neuro: A&O x2 (person, place) - baseline secondary to dementia. No focal neurological deficits. Results & Data Results & Data Vital Signs (Past 12 Hours) Vital Signs Temp Pulse Resp BP Pulse Ox O2 Del Method 12/06/24 21:24 165/69 H 12/06/24 14:28 36.8 C 63 17 164/68 H 97 Room Air PG Care Time/CCT Total # of Minutes Spent Total Time Spent with Patient: Total time spent is greater than 50% in coordination of care (as documented) at patient's floor/unit and/or counseling patient: Coding Level of Care Code 73364 SUB INP/OBS CARE 2MIN Diagnoses Memory impairment R41.3 Advanced dementia F03.C0
[2024-12-07] MEDS: QUEtiapine FUMARATE 25 MG TABLET PO SCH (13:50)
--- NOTE | 2024-12-07 18:38 | Hospitalist Progress Note ---
Date of Service December 07, 2024 Assessment & Plan (1) Memory impairment: (2) Advanced dementia: Plan Alyssia is a 79-year-old female with PMH of dementia, recurrent UTIs, and memory impairment. She presented on 11/29 for an acute worsening of her known dementia. Patient lives with her daughter (Liam). Both children report that she has had significant decline in her cognition since around Ann time 2023. No infectious symptoms appreciated on exam or lab findings. Family desires to have the patient admitted for skilled nursing placement. Started aspirin 81 mg daily for primary prevention given encephalomalacia within the left temporoparietal lobe suggestive of chronic infarct noted on Head CT. Started Seroquel HS to help with agitation overnight. #Advanced dementia Continue sertraline 25 mg daily, donepezil 5 mg daily, Xanax 0.5 mg TID PRN anxiety Continue Seroquel to 50 mg HS Continue aspirin 81 mg daily Zyprexa 5mg IM cotton opener as needed for acute agitation Vit B12 WNL, Vit B1 level still pending Appears more controlled now with zyprexa. No longer agiitaed. vitals stable. added low dose seroquel to am. Chronic stable issues: #Hypothyroidism-levothyroxine #HLD-atorvastatin DVT PPx: Lovenox 40 mg SQ q24h Dispo: Continue inpatient stay while awaiting long-term placement. Case management following; referrals pending. Plan is for patient to temporarily go to locked dementia unit while family coordinates home care. Updated daughter Chart review. Admission and Anticipated Discharge Date Admission Date: November 29, 2024 Subjective Patient is comfortable. Physical Exam Physical Exam: General: No acute distress, nondiaphoretic, frail elderly female. \ Walks her room/halls without difficulty. Cardiac: Regular rate in 70s. Well perfused. Pulm: Normal respiratory effort. 97% on room air. Neuro: A&O x2 (person, place) - baseline secondary to dementia. No focal neurological deficits. Results & Data Results & Data Vital Signs (Past 12 Hours) Vital Signs Temp Pulse Resp BP Pulse Ox O2 Del Method 12/07/24 13:45 36.5 C 80 14 166/63 H 95 Room Air PG Care Time/CCT Total # of Minutes Spent Total Time Spent with Patient: Total time spent is greater than 50% in coordination of care (as documented) at patient's floor/unit and/or counseling patient: Coding Level of Care Code 71618 SUB INP/OBS CARE MIN Diagnoses Memory impairment R41.3 Advanced dementia F03.C0
[2024-12-07 20:01] VITALS: RESP 16
[2024-12-08 07:51] VITALS: BP 187/73; PULSE 76; TEMP 97.9; O2SAT 98
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
== END 2024-12-08 11:12 | disposition home health service (06) | DRG 884 ==
LOC: ED 10:33 → 3E 14:30 → SUATTDRO 14:30 → 3E 14:53